=== PATIENT | male | born 1970 | race Caucasian/White ===

== ENCOUNTER 2017-07-20 09:40 | Emergency (ER) | payer OTHER ==
[2017-07-20] MEDS ORDERED: Amoxicillin PO (*) 500 MG CAP PO ONE (10:16)
[2017-07-20] MEDS ORDERED: Oseltamivir CAP* 75 MG PO ONE (10:34)
[2017-07-20 10:47] VITALS: BP 112/56
--- NOTE | 2017-07-20 11:14 | ED ---
Madeleine Mcconnell Abhishek, scribed for Marisol Miller MD on 07/20/17 at 1012 . Influenza-Like Illness - HPI Summary HPI Summary: This patient is a 47 year old M presenting to [facility] with c/o of sore throat, cough (productive), hoarseness in voice, and chest pain with cough since 0900 ( 07/17/17). The patient rates the pain 0/10 in severity. Symptoms aggravated by nothing. Symptoms alleviated by nothing. Patient denies abd pain, and vomiting. The patient has a SHx of substance abuse (Heroin) which he reports he took one week ago (07/13/17) and also a Hx of tobacco usage. - History of Current Complaint Chief Complaint: EDGeneral Time Seen by Provider: 07/20/17 09:42 Hx Obtained From: Patient, Medical Records Onset/Duration: Gradual Onset, Lasting Days - 07/17/17 0900, Still Present Severity: Moderate Associated Signs & Symptoms: Cough, Sore Throat Related Hx: Smoking - Allergy/Home Medications Allergies/Adverse Reactions: Allergies Allergy/AdvReac Type Severity Reaction Status Date / Time No Known Allergies Allergy Verified 02/27/15 19:36 PMH/Surg Hx/FS Hx/Imm Hx Previously Healthy: No Sensory History: Denies: Hx Vision Problem, Hx Deafness Opthamlomology History: Denies: Hx Legally Blind EENT History: Denies: Hx Deafness, Hx Hearing Problem Psychiatric History: Reports: Hx Substance Abuse - Heroin - Surgical History Surgery Procedure, Year, and Place: Appendectomy Infectious Disease History: No Infectious Disease History: Denies: Traveled Outside the [place] in Last 30 Days - Family History Known Family History: Positive: Other - Pancreatic cancer in mother Negative: Cardiac Disease - Social History Alcohol Use: None Hx Substance Use: Yes Substance Use Type: Reports: Heroin, Prescribed Substance Use Comment - Amount & Last Used: yesterday morphine 30 mg Smoking Status (MU): Light Every Day Tobacco Smoker Review of Systems Constitutional: Other Eyes: Negative ENT: Other - hoarseness in voice Positive: Sore Throat Positive: Chest Pain - with cough Positive: Cough Negative: Abdominal Pain, Vomiting Genitourinary: Negative Musculoskeletal: Negative Positive: Other - track jose on skin Neurological: Negative Psychological: Normal All Other Systems Reviewed And Are Negative: Yes Physical Exam - Summary Physical Exam Summary: Appearance: Ill appearing, mild pain distress, Well-nourished, Constant kinetic motion Skin: Track jose all over his body and extremities Head: Normal Head/Face inspection Eyes: Conjunctiva clear, pupils 2mm, reactive ENT: Normal, hoarse voice, pharynx red, tonsils normal, no exudate Neck: Supple, no JVD, no nodes Respiratory: Lungs clear, Normal breath sounds, no respiratory distress Cardio: RRR, No murmur, pulses normal, brisk capillary refill Abdomen: soft, nontender Bowel sounds: present Musculoskeletal: Strength Intact/ ROM intact Neuro: Alert, muscle tone normal, facial symmetry, speech normal, sensory/motor intact Psychological: Normal Triage Information Reviewed: Yes Vital Signs On Initial Exam: Initial Vitals Temp Pulse Resp BP Pulse Ox 97.3 F 91 20 175/98 96 07/20/17 09:43 07/20/17 09:43 07/20/17 09:43 07/20/17 09:43 07/20/17 09:43 Vital Signs Reviewed: Yes Diagnostics - Vital Signs Vital Signs Temp Pulse Resp BP Pulse Ox 07/20/17 09:43 97.3 F 91 20 175/98 96 - Laboratory Lab Results: Lab Results 07/20/17 07/20/17 Range/Units 10:02 10:05 Influenza A (Rapid) Positive H (Negative) Influenza B (Rapid) Negative (Negative) Group A Strep Rapid Positive H (Negative) Lab Statement: Any lab studies that have been ordered have been reviewed, and results considered in the medical decision making process. Re-Evaluation - Re-Evaluation First Eval Re-Evaluation Time: 10:30 - informed of dx influenza and strep and given first doses to treat both. Change: Unchanged Flu Symptom Course/Dx - Course Course Of Treatment: The Patient was given the flu test and strep test. Both test showed positive signs for influenza A and strep throat. The patient will be discharged home. Dx will be influenza A and strep throat. Treated with Amoxicillin 500 tid x 10 days, Tamiflu 75mg po bid x 5 days. First doses given in the ED. - Diagnoses Differential Diagnosis/HQI/PQRI: Positive: Bronchitis, Broncholiolitis, Influenza, Pneumonia, RSV, Upper Respiratory Infection Provider Diagnoses: Strep throat, Influenza A Discharge - Discharge Plan Condition: Stable Disposition: HOME Prescriptions: Amoxicillin PO (*) [Amoxicillin 500 MG CAP*] 500 mg PO TID #30 cap Oseltamivir CAP* [Tamiflu CAP*] 75 mg PO BID #10 cap Patient Education Materials: Strep Throat (ED), Influenza (ED) Referrals: [facility] [Outside] Additional Instructions: You have strep grp A, and influenza A, both strep and flu. We have started you on medications for both and you will need to go to [facility] on [facility] to greens picker two prescriptions for the treatment of these two diseases. Return to the ER if you have any new or worsening symptoms. The documentation as recorded by the Madeleine toussaint Abhishek accurately reflects the service I personally performed and the decisions made by , Marisol Miller MD.
== END 2017-07-20 10:46 | disposition home or self-care (01) ==
LOC: ED 09:40
DX: J02.0 Streptococcal pharyngitis (principal); J09.X2 Influenza due to identified novel influenza A virus with other respiratory manifestations; Z72.0 Tobacco use
CPT/HCPCS: 87502; 87651; 99282; A9270-GY

== ENCOUNTER 2017-08-03 16:09 | Emergency (ER) | payer OTHER ==
[2017-08-03 16:16] VITALS: BP 140/70
--- NOTE | 2017-08-03 18:49 | ED ---
Maira Mcconnell Julia, scribed for Alfa Sanders MD on 08/03/17 at 1636 . Substance Abuse/Use - HPI Summary HPI Summary: This patient is a 47 year old M BIBA to [facility] due to IV heroin injection at 15: 30 today. Patient was at HIV clinic where he admitted to an IV injection of heroin and was "passing out" when clinic called EMS. Patient denies pain. - History Of Current Complaint Chief Complaint: EDSubstanceAbuse Stated Complaint: HEROIN OD Time Seen by Provider: 08/03/17 16:28 Hx Obtained From: Patient, EMS Onset/Duration of Drug/ETOH Abuse: Hours Ingestion History: Type/Name Of Drug - Heroin Overdose Characteristics: IV - Allergies/Home Medications Allergies/Adverse Reactions: Allergies Allergy/AdvReac Type Severity Reaction Status Date / Time No Known Allergies Allergy Verified 02/27/15 19:36 PMH/Surg Hx/FS Hx/Imm Hx Sensory History: Denies: Hx Legally Blind, Hx Vision Problem, Hx Deafness, Hx Hearing Problem Opthamlomology History: Denies: Hx Legally Blind, Hx Vision Problem Psychiatric History: Reports: Hx Substance Abuse - Heroin - Surgical History Surgery Procedure, Year, and Place: Appendectomy - Immunization History Date of Tetanus Vaccine: UTD Date of Influenza Vaccine: NO Infectious Disease History: Yes Infectious Disease History: Denies: Traveled Outside the [place] in Last 30 Days - Family History Known Family History: Positive: Other - Pancreatic cancer in mother Negative: Cardiac Disease - Social History Alcohol Use: None Hx Substance Use: Yes Substance Use Type: Reports: Cocaine, Heroin, Marijuana, Prescribed Substance Use Comment - Amount & Last Used: yesterday morphine 30 mg Hx Tobacco Use: Yes Smoking Status (MU): Current Every Day Smoker Review of Systems Negative: Fever Negative: Myalgia All Other Systems Reviewed And Are Negative: Yes Physical Exam - Summary Physical Exam Summary: Appearance: The patient is well-nourished in no acute distress and in no acute pain. Skin: The skin is warm and dry and skin color reflects adequate perfusion. HEENT: The head is normocephalic and atraumatic. The pupils are equal and reactive. The conjunctivae are clear and without drainage. Nares are patent and without drainage. Mouth reveals moist mucous membranes and the throat is without erythema and exudate. The external ears are intact. The ear canals are patent and without drainage. The tympanic membranes are intact. Neck: the neck is supple with full range of motion and non-tender. There are no carotid bruits. There is no neck vein distension. Respiratory: Chest is non-tender. Lungs are clear to auscultation and breath sounds are symmetrical and equal. Cardiovascular: Heart is regular rate and rhythm. There is no murmur or rub auscultated. There is no peripheral edema and pulses are symmetrical and equal. Abdomen: The abdomen is soft and non-tender. There are normal bowel sounds heard in all four quadrants and there is no organomegaly palpated. Musculoskeletal: There is no back tenderness noted. Extremities are non-tender with full range of motion. There is good capillary refill. There is no peripheral edema or calf tenderness elicited. Neurological: Patient is alert and oriented to person, place and time. The patient has symmetrical motor strength in all four extremities. Cranial nerves are grossly intact. Deep tendon reflexes are symmetrical and equal in all four extremities. Psychiatric: The patient has an appropriate affect and does not exhibit any anxiety or depression. Triage Information Reviewed: Yes Vital Signs On Initial Exam: Initial Vitals Temp Pulse Resp BP Pulse Ox 97.3 F 100 14 140/70 100 08/03/17 16:13 08/03/17 16:13 08/03/17 16:13 08/03/17 16:13 08/03/17 16:13 Vital Signs Reviewed: Yes - Cm Coma Scale Coma Scale Total: 15 Diagnostics - Vital Signs Vital Signs Temp Pulse Resp BP Pulse Ox 08/03/17 16:13 97.3 F 100 14 140/70 100 - Laboratory Lab Statement: Any lab studies that have been ordered have been reviewed, and results considered in the medical decision making process. Course/Dx - Course Course Of Treatment: Ms. Casey was mildy stuporous in public and EMS was called. He admitted shooting heroin but did not require narcan. He ius not interested in quitting at this time and did not want a suboxone referral. - Diagnoses Provider Diagnoses: Heroin abuse Discharge - Discharge Plan Condition: Stable Disposition: HOME Patient Education Materials: Narcotic Abuse (ED) Referrals: No Primary Care Phys,NOPCP [Primary Care Provider] - Additional Instructions: RETURN TO THE EMERGENCY DEPARTMENT FOR CHANGING OR WORSENING SYMPTOMS. The documentation as recorded by the Maira toussaint Julia accurately reflects the service I personally performed and the decisions made by me, Alfa Sanders MD.
== END 2017-08-03 16:52 | disposition home or self-care (01) ==
LOC: ED 16:09
DX: T40.1X1A Poisoning by heroin, accidental (unintentional), initial encounter (principal); Y92.89 Other specified places as the place of occurrence of the external cause; F17.210 Nicotine dependence, cigarettes, uncomplicated
CPT/HCPCS: 99282

== ENCOUNTER 2019-10-06 15:23 | Emergency (ER) | payer OTHER ==
[2019-10-06] MEDS ORDERED: NS 0.9% 1000 ML** 1,000 ML IV.FLUID IV ONE (15:34)
--- NOTE | 2019-10-06 15:34 | ED ---
Complex/Multi-Sys Presentation - HPI Summary HPI Summary: 49 year old M presenting to [facility] with a chief complaint of low blood pressure and fatigue since earlier today. The patient rates the pain 0/10 in severity. Symptoms aggravated by nothing. Symptoms alleviated by nothing. Patient reports a recent history of MRSA. Patient denies any fever, vomiting, or diarrhea. The patient admits to an active history of smoking and marijuana and IV methadone use. Medication list reviewed. Allergy list reviewed. Home Medications Medication Instructions Recorded Confirmed Type Amoxicillin PO (*) [Amoxicillin 500 mg PO TID #30 cap 07/20/17 Rx 500 MG CAP*] Oseltamivir CAP* [Tamiflu CAP*] 75 mg PO BID #10 cap 07/20/17 Rx - History Of Current Complaint Hx Obtained From: Patient Onset/Duration: Still Present Timing: Constant Severity Currently: None Aggravating Factor(s): None Alleviating Factor(s): None Associated Signs And Symptoms: Positive: Other - Fatigue. Negative: Vomiting, Diarrhea, Fever - Allergies/Home Medications Allergies/Adverse Reactions: Allergies Allergy/AdvReac Type Severity Reaction Status Date / Time No Known Allergies Allergy Verified 02/27/15 19:36 Home Medications: Home Medications NK [No Home Medications Reported] 10/06/19 [History Confirmed 10/06/19] PMH/Surg Hx/FS Hx/Imm Hx Sensory History: Denies: Hx Legally Blind, Hx Vision Problem, Hx Deafness, Hx Hearing Problem Opthamlomology History: Denies: Hx Legally Blind, Hx Vision Problem Psychiatric History: Reports: Hx Substance Abuse - Heroin - Surgical History Surgery Procedure, Year, and Place: Appendectomy - Immunization History Date of Tetanus Vaccine: UTD Date of Influenza Vaccine: NO Infectious Disease History: Reports: Hx of Known/Suspected MRSA - Family History Known Family History: Positive: Other - Pancreatic cancer in mother Negative: Cardiac Disease - Social History Alcohol Use: None Hx Substance Use: Yes Substance Use Type: Reports: Cocaine, Heroin, Marijuana, Prescribed, Other - Methadone Hx Tobacco Use: Yes Smoking Status (MU): Current Every Day Smoker Review of Systems Positive: Fatigue. Negative: Fever Positive: Other - Low blood pressure Negative: Vomiting, Diarrhea All Other Systems Reviewed And Are Negative: Yes Physical Exam - Summary Physical Exam Summary: Constitutional: Well-developed, Well-nourished, appears drowsy, slow to respond to some questions. (-) Distressed Skin: Warm, Dry HENT: Normocephalic; Atraumatic Eyes: Conjunctiva normal Neck: Musculoskeletal ROM normal neck. (-) JVD, (-) Stridor, (-) Tracheal deviation Cardio: Rhythm regular, rate normal, Heart sounds normal; Intact distal pulses; Radial pulses are 2+ and symmetric. (-) Murmur Pulmonary/Chest wall: Effort normal. (-) Respiratory distress, (-) Wheezes, (-) Rales Abd: Soft, (-) tenderness, (-) Distension, (-) Guarding, (-) Rebound Musculoskeletal: (-) Edema Lymph: (-) Cervical adenopathy Neuro: Alert, Oriented x3 Psych: Mood and affect Normal Triage Information Reviewed: Yes Vital Signs Reviewed: Yes Procedures - Sedation Patient Received Moderate/Deep Sedation with Procedure: No Diagnostics - Laboratory Result Diagrams: 10/06/19 16:56 10/06/19 16:56 Lab Statement: Any lab studies that have been ordered have been reviewed, and results considered in the medical decision making process. - Radiology Chest x-ray Radiology Interpretation Completed By: Radiologist Summary of Radiographic Findings: No radiographic evidence for acute cardiopulmonary abnormality on this portable chest x-ray. ED physician has reviewed this report. Re-Evaluation - Re-Evaluation First Eval Re-Evaluation Time: 17:50 Comment: The patient does not want to stay, trying to convince him to stay. Complex Multi-Symp Course/Dx Course Of Treatment: Patient is here with hypotension. Patient has been battling an MRSA infection over the past couple of months. Patient's had chills , fatigue over the past 4 days. Patient wasn't currently hypotensive upon arrival by EMS and was very hypertensive here. Patient had blood or performed which were normal lactate. Patient has slightly elevated leukocytosis. Patient had negative influenza swab. Patient negative chest x-ray. Patient was given 3 L of IV fluid with continued hypotension. Patient's heart rate was normal the whole time he was here. Patient was admitted to the hospital for further evaluation and management - Diagnoses Provider Diagnoses: Hypotension, Sepsis, MRSA (methicillin resistant staph aureus) culture positive - Physician Notifications Discussed Care Of Patient With: Verna Smalls Time Discussed With Above Provider: 18:22 Instructed by Provider To: Other - Discussed with Dr. Smalls who will admit the patient. - Critical Care Time Critical Care Time: 30-74 min - 35 minutes Discharge ED - Sign-Out/Discharge Documenting (check all that apply): Patient Departure - Discharge Plan Condition: Stable Disposition: ADMITTED TO [facility] Referrals: No Primary Care Phys,NOPCP [Primary Care Provider] - - Billing Disposition and Condition Condition: STABLE Disposition: Admitted to [facility] - Attestation Statements Document Initiated by Scribe: Yes Documenting Scribe: Kathia Chang Provider For Whom Vi is Documenting (Include Credential): Miki Hardy MD Scribe Attestation: Kathia Mcconnell, scribed for Miki Hardy MD on 10/06/19 at 5217. Scribe Documentation Reviewed: Yes Provider Attestation: The documentation as recorded by the Kathia toussaint accurately reflects the service I personally performed and the decisions made by , Miki Hardy MD Status of Scribe Document: Viewed
[2019-10-06 16:29] LABS: Influenza A Molecular Negative (Negative); Influenza B Molecular Negative (Negative)
[2019-10-06] MEDS ORDERED: Vancomycin(*) 1,500 MG in NS 0.9% 250 ML* 250 ML IVPB ONE (16:38)
[2019-10-06 17:04] LABS: ABS Eosinophils 0.1 10^3/ul (0-0.6); ABS Lymphocytes 1.1 10^3/ul (1.0-4.8); ABS Monocytes 0.4 10^3/ul (0-0.8); ABS Neutrophils 9.3 10^3/ul (1.5-7.7); Eosinophil % 0.7 %; Hematocrit 36 % (42-52); Lymphocyte % 10.2 %; Mean Corpuscular HGB Conc 33 g/dL (31-36); Mean Corpuscular Hemoglobin 28 pg (27-31); Mean Corpuscular Volume 85 fL (80-94); Mean Platelet Volume 7.3 fL (7.4-10.4); Nucleated Red Blood Cells % 0.1; Platelet Count 236 10^3/uL (150-450); Red Blood Count 4.31 10^6 /uL (4.18-5.48); Red Cell Distribution Width 15 % (10-15); White Blood Count 10.9 10^3/uL (3.5-10.8)
[2019-10-06 17:15] LABS: Activated Partial Thrombo Time 29.3 seconds (26.0-38.0); INR 1.04 (0.82-1.09)
[2019-10-06 17:23] LABS: ALT 18 U/L (7-52); AST 24 U/L (13-39); Albumin 3.6 g/dL (3.2-5.2); Albumin/Globulin Ratio 1.4 (1-3); Alkaline Phosphatase 40 U/L (34-104); Anion Gap 5 mmol/L (2-11); Blood Urea Nitrogen 18 mg/dL (6-24); C Reactive Protein 23.19 mg/L (<8.01); CO2 Carbon Dioxide 24 mmol/L (22-32); Calcium 8.6 mg/dL (8.6-10.3); Chloride 108 mmol/L (101-111); EGFR African American 120.8 (>60); EGFR Non-African American 99.9 (>60); Globulin 2.6 g/dL (2-4); Glucose 94 mg/dL (70-100); Potassium 3.9 mmol/L (3.5-5.0); Sodium 137 mmol/L (135-145); Total Protein 6.2 g/dL (6.4-8.9)
[2019-10-06 17:37] LABS: Alcohol < 10 mg/dL (<10)
[2019-10-06] MEDS ORDERED: NS 0.9% 1000 ML** 1,000 ML IV ONE (18:20)
[2019-10-06 19:45] LABS: Urine Appearance Clear; Urine Bilirubin Negative (Negative); Urine Blood Negative (Negative); Urine Color Yellow; Urine Glucose Negative (Negative); Urine Ketones Trace (Negative); Urine Nitrite Negative (Negative); Urine Urobilinogen Negative (Negative)
[2019-10-06 19:50] LABS: Urine Bacteria Absent (Absent); Urine Red Blood Cell 1+(3-5/hpf) (Absent); Urine White Blood Cell Absent (Absent)
[2019-10-06 20:07] LABS: Urine Benzodiazepine Screen None Detected (None Detect); Urine Opiates Screen None Detected (None Detect)
[2019-10-06] MEDS ORDERED: Acetaminophen TAB* 325 MG PO PRN (20:43)
[2019-10-06] MEDS ORDERED: Ondansetron INJ* 2 MG/ML VIAL IV PRN (20:43)
[2019-10-06] MEDS ORDERED: Albuterol 2.5 MG/3 ML NEB.SOL* (0.083%) INH PRN (20:43)
[2019-10-06] MEDS ORDERED: Al Hydrox/Mg Hydrox/Simet LIQ* 30 ML UDC PO PRN (20:43)
[2019-10-06] MEDS ORDERED: Albuterol/Ipratropium NEB.SOL* Albuterol 2.5 MG/Ipratropium 0.5 MG 3 ML INH PRN (20:43)
[2019-10-06] MEDS ORDERED: NS 0.9% 1000 ML** 1,000 ML IV SCH (20:45)
[2019-10-06] MEDS ORDERED: Vancomycin per Pharmacy* NOTE FOLLOW UP SCH (21:00)
[2019-10-06 23:20] VITALS: BP 100/59
[2019-10-07 14:39] LABS: Urine Protein Negative (Negative)
== END 2019-10-06 23:10 | disposition short-term general hospital (02) ==
LOC: ED 15:23 → MED 20:43 → UNDOADMIN 20:43 → ED 23:10
DX: A41.9 Sepsis, unspecified organism (principal); A49.02 Methicillin resistant Staphylococcus aureus infection, unspecified site; I95.9 Hypotension, unspecified; R53.83 Other fatigue; F17.210 Nicotine dependence, cigarettes, uncomplicated
CPT/HCPCS: 36415; 71045; 80053; 80307; 80320; 81003; 81015; 83605; 84484; 85025; 85610; 85730; 86140; 87040; 96361; 96365; 96366; 99285; G0480; J3370

== ENCOUNTER 2024-05-27 10:20 | Observation (INO) ==
[2024-05-27 10:53] LABS: ABS Basophils 0.1 10^3/uL (0.0-0.1); ABS Eosinophils 0.3 10^3/uL (0.0-0.5); ABS Lymphocytes 1.3 10^3/uL (1.0-4.8); ABS Monocytes 0.6 10^3/uL (0.0-1.1); ABS Neutrophils 6.9 10^3/uL (1.5-7.6); Eosinophil % 3.2 %; Hematocrit 39.8 % (38-53); Hemoglobin 13.4 g/dL (13.2-16.3); Lymphocyte % 13.8 %; Mean Corpuscular Hemoglobin 29.6 pg (27-33); Mean Corpuscular Hgb Conc 33.7 g/dL (31-36); Mean Corpuscular Volume 87.7 fL (80-97); Mean Platelet Volume 6.9 fL (7.5-11.2); Platelet Count 337 10^3/uL (150-450); Red Blood Count 4.54 10^6/uL (4.06-5.63); White Blood Count 9.2 10^3/uL (3.6-10.2)
[2024-05-27 11:06] LABS: INR 0.97 (0.85-1.14)
[2024-05-27 11:38] LABS: Albumin 3.9 g/dL (3.2-5.2); Albumin/Globulin Ratio 1.3 (1-3); Calcium 9.2 mg/dL (8.6-10.3); Creatinine, Serum 0.73 mg/dL (0.67-1.17); Potassium 4.6 mmol/L (3.5-5.0); Total Bilirubin 0.3 mg/dL (0.2-1.0); Total Protein 6.9 g/dL (6.4-8.9); eGFR CKD-EPI 108.1 (>60)
[2024-05-27] MEDS: Albuterol/Ipratropium NEB.SOL (2.5/0.5 MG) 3 ML NEB.SOLN INH ONE (12:12)
[2024-05-27] MEDS: Iohexol 350 (CONTRAST) 500 ML MDV IV ONE (12:41)
[2024-05-27 13:07] LABS: High Sensitivity Troponin 1 Hr 6 pg/mL (<20)
[2024-05-27] MEDS: cefTRIAXone 1 gm/50 mL D5W 1 GM/50 ML BAG IV ONE (15:15)
[2024-05-27] MEDS: Azithromycin 500 mg/250 ml NS 500 MG/250 ML BAG IVPB ONE (16:36)
[2024-05-27] MEDS: Albuterol/Ipratropium NEB.SOL (2.5/0.5 MG) 3 ML NEB.SOLN INH PRN (20:02)
[2024-05-27 20:39] LABS: C Reactive Protein 6.83 mg/L (<8.01)
[2024-05-27] MEDS: Enoxaparin 40 MG/0.4 ML SYR SUBCUT SCH (20:51)
[2024-05-27] MEDS: Morphine 2 MG/ML SYRINGE IV ONE (21:38)
[2024-05-27 23:40] LABS: High Sensitivity Troponin 1 Hr 4 pg/mL (<20)
[2024-05-28 01:35] LABS: High Sensitivity Troponin 3 Hr 5 pg/mL (<20)
[2024-05-28 08:00] LABS: ABS Basophils 0.1 10^3/uL (0.0-0.1); ABS Eosinophils 0.1 10^3/uL (0.0-0.5); ABS Lymphocytes 1.7 10^3/uL (1.0-4.8); ABS Monocytes 0.9 10^3/uL (0.0-1.1); ABS Neutrophils 10.1 10^3/uL (1.5-7.6); Eosinophil % 0.5 %; Hematocrit 38.8 % (38-53); Hemoglobin 13.1 g/dL (13.2-16.3); Lymphocyte % 13.3 %; Mean Corpuscular Hemoglobin 29.5 pg (27-33); Mean Corpuscular Hgb Conc 33.7 g/dL (31-36); Mean Corpuscular Volume 87.7 fL (80-97); Mean Platelet Volume 7.3 fL (7.5-11.2); Platelet Count 391 10^3/uL (150-450); Red Blood Count 4.42 10^6/uL (4.06-5.63); Red Cell Distribution Width 13.1 % (12-17); White Blood Count 12.8 10^3/uL (3.6-10.2)
[2024-05-28] MEDS: CMC:FLUTICAS/UMECLI/VILANT 100-62.5-25 MDI (NF) INH SCH (08:21)
[2024-05-28] MEDS: guaiFENesin 100 mg/5 ml LIQ unit dose cup PO PRN (08:28)
[2024-05-28 08:33] LABS: Calcium 9.2 mg/dL (8.6-10.3); Creatinine, Serum 0.72 mg/dL (0.67-1.17); Potassium 4.2 mmol/L (3.5-5.0); eGFR CKD-EPI 108.6 (>60)
[2024-05-28] MEDS: methylPREDNISolone SOD SUCC 40 mg/ml 1 ml VIAL IV SCH (12:39)
[2024-05-28] MEDS: Albuterol/Ipratropium NEB.SOL (2.5/0.5 MG) 3 ML NEB.SOLN INH SCH (14:17)
[2024-05-28] MEDS: cefTRIAXone 1 gm/50 mL D5W 1 GM/50 ML BAG IV SCH (15:06)
[2024-05-28] MEDS: Azithromycin 500 mg/250 ml NS 500 MG/250 ML BAG IVPB SCH (15:54)
[2024-05-29] MEDS ORDERED: Nicotine GUM 4MG FRUIT FLAVOR PO PRN (10:14)
[2024-05-29] MEDS: Nicotine PATCH 21 MG/24 HR PATCH TRANSDERM SCH (11:09)
[2024-05-29 13:16] VITALS: BP 127/78
[2024-05-29] MEDS: Albuterol/Ipratropium NEB.SOL (2.5/0.5 MG) 3 ML NEB.SOLN INH SCH (13:30)
== END 2024-05-29 15:00 | disposition home or self-care (01) ==
LOC: ED 10:20 → EDHOLD 10:20 → MED 16:30
PROVIDERS: ADMIT Internal Medicine; ATTEND Internal Medicine